=== PATIENT | male | born 1970 | race Hispanic/Latino ===

== ENCOUNTER 2018-01-06 16:50 | Observation (INO) | payer SELFPAY ==
[2018-01-06 17:16] LABS: #Eosinphils 0.1 thou/uL (0.0-0.7); #Monocytes 0.6 thou/uL (0.11-0.59); #Neutrophils 3.8 thou/uL (1.40-6.50); %Basophils 0.3 % (0.0-1.0); %Eosinophils 0.9 % (0.0-10.0); %Lymphocytes 30.7 % (21.0-51.0); %Monocytes 9.1 % (0.0-10.0); Hemoglobin 18.7 g/dL (14.0-18.0); Mean Corpuscular Volume 91.6 fL (78.0-98.0); Platelet Count 153 thou/uL (130-400); RBC Distribution Width 11.2 % (11.5-14.5); Red Blood Cell (RBC) Count 5.84 mill/uL (4.70-6.10); White Blood Cell (WBC) Count 6.4 thou/uL (4.8-10.8)
[2018-01-06 17:41] LABS: ALT (SGPT) 103 U/L (8-55); AST (SGOT) 67 U/L (5-34); Albumin 4.8 g/dL (3.5-5.0); Alkaline Phosphatase 150 U/L (40-150); Anion Gap 20 mmol/L (10-20); BUN (Urea Nitrogen) 19 mg/dL (8.9-20.6); Bilirubin, Total 1.1 mg/dL (0.2-1.2); Calc. Creatinine Clearance 0 mL/min (70-130); Calcium 11.3 mg/dL (7.8-10.44); Carbon Dioxide 20 mmol/L (22-29); Chloride 100 mmol/L (98-107); Estimated GFR-MDRD 26; Globulin 4.5 g/dL (2.4-3.5); Glucose 140 mg/dL (70-105); Potassium 4.3 mmol/L (3.5-5.1); Protein, Total 9.3 g/dL (6.0-8.3); Sodium 136 mmol/L (136-145)
[2018-01-06 17:44] LABS: Bilirubin Small (Negative); Blood, Urine Negative (Negative); Clarity CLOUDY (Clear); Glucose, Urine (Dipstick) Negative (Negative); Leukocyte Small (Negative); Nitrite Negative (Negative); Protein, Urine (Dipstick) 30 mg/dL (Neg-Trace); Specific Gravity, Urine 1.024 (1.002-1.036); pH, Urine 5.5 (5.0-9.0)
[2018-01-06 17:45] LABS: Bacteria/HPF None Seen HPF (None Seen)
[2018-01-06 17:45] LABS: Troponin I Less than 0.010 ng/mL (< 0.028)
[2018-01-06 17:52] LABS: Pathc Cast-AUWi Flag 6.83 (0-2.49)
[2018-01-06 18:04] LABS: RBC/HPF 0-3 HPF (0-3)
[2018-01-06] MEDS ORDERED: HYDROcodone/Acetaminophen 5/325 mg Tablet PO PRN ×2 (21:28)
[2018-01-06] MEDS ORDERED: Acetaminophen 325 MG TAB PO PRN (21:28)
[2018-01-06] MEDS ORDERED: Ondansetron HCl/PF 4 MG/2 ML Vial IVP PRN (21:28)
[2018-01-06] MEDS ORDERED: Ondansetron ODT 4 MG TAB SL PRN (21:28)
[2018-01-06] MEDS ORDERED: Dextrose 5 %-0.45 % NaCl 1,000 ML IV SCH (21:30)
[2018-01-06 22:09] VITALS: BMI 31.8
[2018-01-06] MEDS: Sodium Chloride 0.9% 1,000 ML IV SCH (23:44)
--- NOTE | 2018-01-06 23:54 | PDOC.FPRHP ---
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 Headache was 5/10, occipital and no associated vision changes or speech slurring. Also endorsed nausea, feeling SOB and leg muscle cramping. His nephew drove him home and during the car ride he had 3 episodes were he lost consciousness for less than a minute. Per patient, he said his nephew did not notice any full body shaking or tremors. Patient denied chest pain, palpitations, loss of urine. He endorses dad dying at age of 36 from "heart exploding" and a history of heart problems leading up to . ED Course: He came into ED tachycardic at 102 with BP 129/105 and temp 97.9. He received 2L of NS bolus and was vitally stable upon admission. - Allergies/Adverse Reactions Allergies Allergy/AdvReac Type Severity Reaction Status Date / Time Penicillins Allergy Verified 01/06/18 21:52 - Home Medications Medication Instructions Recorded Confirmed Type No Known [No Known] 01/06/18 01/06/18 History - History PMHx: HIV PSHx: None FHx: Father of "heart exploding" at age 36. DM-mom Social: 14 pack year history, drinks a 6pack daily for past 20 years, denies drug use. - Review of Systems General: denies: fever/chills, weight/appetite/sleep changes, night sweats Eyes: denies: eye pain, vision changes ENT: denies: nasal congestion, rhinorrhea Respiratory: reports: shortness of breath (SOB earlier in the day). denies: cough Cardiovascular: denies: chest pain, palpitation, edema Gastrointestinal: reports: nausea. denies: vomiting, diarrhea Genitourinary: denies: dysuria Skin: denies: rashes, jaundice Musculoskeletal: denies: pain Neurological: reports: syncope. denies: numbness - Vital signs BP: [113/70] HR: [81] RR: [18] Tmax: [98.1] Pox: [98]% on [RA] Wt: [97.6kg] - Physical Exam Constitutional: NAD, awake, alert and oriented HEENT: normocephalic and atraumatic, EOMI, conjunctiva clear, other (oral mucosa dry, non-scrapable white plaque on tongue) Neck: supple, other (left neck skin lesion, closed and healing) Chest: no-tender to palpation Heart: RRR Lungs: CTAB, no respiratory distress, good air movement Abdomen: soft, non-tender Musculoskeletal: normal structure Skin: no rash/lesions, capillary refill <2 seconds Heme/Lymphatic: no unusual bruising or bleeding Psychiatric: normal mood and affect FMR H&P: Results - Labs Result Diagrams: 01/07/18 04:38 01/07/18 04:38 Lab results: WBC 6.4 thou/uL (4.8-10.8) 01/06/18 17:13 Hgb 18.7 g/dL (14.0-18.0) H 01/06/18 17:13 Hct 53.4 % (42.0-52.0) H 01/06/18 17:13 MCV 91.6 fL (78.0-98.0) 01/06/18 17:13 Plt Count 153 thou/uL (130-400) 01/06/18 17:13 Neutrophils % 59.0 % (42.0-75.0) 01/06/18 17:13 Sodium 136 mmol/L (136-145) 01/06/18 17:13 Potassium 4.3 mmol/L (3.5-5.1) 01/06/18 17:13 Chloride 100 mmol/L (98-107) 01/06/18 17:13 Carbon Dioxide 20 mmol/L (22-29) L 01/06/18 17:13 BUN 19 mg/dL (8.9-20.6) 01/06/18 17:13 Creatinine 2.68 mg/dL (0.6-1.3) H 01/06/18 17:13 Glucose 140 mg/dL (70-105) H 01/06/18 17:13 Calcium 11.3 mg/dL (7.8-10.44) H 01/06/18 17:13 Total Bilirubin 1.1 mg/dL (0.2-1.2) 01/06/18 17:13 AST 67 U/L (5-34) H 01/06/18 17:13 ALT 103 U/L (8-55) H 01/06/18 17:13 Alkaline Phosphatase 150 U/L (40-150) 01/06/18 17:13 CK-MB (CK-2) 3.0 ng/mL (0-6.6) 01/06/18 17:13 Serum Total Protein 9.3 g/dL (6.0-8.3) H 01/06/18 17:13 Albumin 4.8 g/dL (3.5-5.0) 01/06/18 17:13 Urine Ketones Trace mg/dL (Negative) H 01/06/18 17:37 Urine Blood Negative (Negative) 01/06/18 17:37 Urine Nitrite Negative (Negative) 01/06/18 17:37 Ur Leukocyte Esterase Small (Negative) H 01/06/18 17:37 Urine RBC 0-3 HPF (0-3) 01/06/18 17:37 Urine WBC 4-6 HPF (0-3) H 01/06/18 17:37 Ur Squamous Epith Cells 4-6 HPF (0-3) H 01/06/18 17:37 Urine Bacteria None Seen HPF (None Seen) 01/06/18 17:37 - EKG Interpretation EKG: RRR, no ST elevations, normal [place] interval FMR H&P: A/P - Problem List (1) Syncope Status: Acute Code(s): R55 - SYNCOPE AND COLLAPSE (2) RYNE (acute kidney injury) Status: Acute Code(s): N17.9 - ACUTE KIDNEY FAILURE, UNSPECIFIED (3) Headache Status: Acute Code(s): R51 - HEADACHE (4) Hypercalcemia Status: Acute Code(s): E83.52 - HYPERCALCEMIA (5) Hyperglycemia Status: Acute Code(s): R73.9 - HYPERGLYCEMIA, UNSPECIFIED (6) Elevated LFTs Status: Acute Code(s): R94.5 - ABNORMAL RESULTS OF LIVER FUNCTION STUDIES (7) HIV (human immunodeficiency virus infection) Status: Chronic - Plan 47 yo HIV+ male with syncope, ryne, headache, hypercalcemia, hyperglycemia, increased LFTs. 1. Syncope likely 2/2 hypovolemia, r/o cardiac source -Fluid resuscitate with NS @125cc/hr -However due to FHx of father's cardiac-related at 36 yo will do cardiac w /u -Will order echo 2. RYNE, unclear etiology -Less likely due to hypovolemia with BUN/Cr of 19/2.8 and gfr of 26 -Could be chronic changes 2/2 HIV or other etiology, but no records of baseline renal function to compare to -Will order urine creatinine, urine Na 3. TABOR likely 2/2 hypovolemia -Acetminophen 650mg, prn 4. Hypercalcemia likely 2/2 hypovolemia -Currently asx -NS @125cc/hr -Will repeat BMP tonight/in the AM to see if resolved. If not, consider other secondary causes of Hypercalcemia 5. Hyperglycemia likely 2/2 hypovolemia -Will repeat BMP tonight/in the AM to see if resolved. If not, consider checking HbA1c 6. Elevated LFTs possibly 2/2 extensive alcohol consumption vs. HIV vs. infectious etiology -Will order Hep C Ab and RPR -Can consider checking CD4 count or consulting Dr. Jackson if LFTs remain elevated 7. HIV+ -Currently not on HAART -Followed by Dr. Jackson; patient is in process of switching over anti-HIV medications, recently underwent HIV testing (possbly EU2puaoc?) FMR H&P: Upper Level - Pertinent history 47 yr old male with PMH of HIV presents for 3 episodes of syncope this afternoon. 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 He doesnt remember when he passed out but his nephew reports that he went out 3 times in the car. He felt little confused after. No shaking or convulsions. He denies palpitations preceding this. No chest pain. He feels that he is very dehydrated. No recent fever or chills. Reports that his HIV is not good currently. Not on meds. The good counts are low and bad are high according to patient. Waiting to get on new med. Reports his father at age 36 and had a heart condition. - Pertinent findings Gen: NAD, pleasant interactive, A & O to person, place, time, and situation Mouth:moist mucous membranes, white plaque on tongue- does not scrape off Cardiac: RRR, no M/R/G Lungs: CTAB no wheeze, rhale, rhonchi Abd: non tender in all quadrants, protuberant, BS present EXT: no edema in BLE, post tibial pulse 2+ EKG: NSR, no st changes - Plan Date/Time: 01/06/18 5926 I, [Dian Vega], have evaluated this patient and agree with findings/plan as outlined by business intern resident. Pertinent changes/additions are listed here. 47 yr old male with PMH of HIV here for episode x 3 of passing out. 1.Syncope likely 2/2 hypovolemia -must rule out cardiac causes with patient history and family history(consider brugada although EKG not indicative) -ECHO -monitor on tele -check mag -s/p 2 liters in ER and cont on NS at 125. 2.HIV -needs to follow up with Dr. Jackson outpatient vs courtesy consult -likely leukoplakia developing 3.RYNE (unknown baseline) -urine studies to determine prerenal vs intrinsic 4.Transaminitis -possibly 2/2 to alcohol abuse -check hep C, RPR -trend CMP 5.Hypercalcemia -likely 2/2 hypovolemia -recheck in AM Attending Addendum - Attending Addendum Date/Time: 01/07/18 2264 I personally evaluated the patient and discussed the management with Dr. Montenegro and Dr. eVga I agree with the History, Examination, Assessment and Plan documented above with any addition or exceptions noted below. 47 yo male with history of HIV presents for evaluation of syncopal episode. Patient without symptoms currently. Denies associated symptoms related to brief syncopal episodes today. Patient reports working outside in the heat today. Feels like he might have gotten over heated. Will admit for syncopal related to heat illness and hypovolemia. Continue IVFs. Rule out rhabdo. Will follow up with Dr. Jackson for HIV. Currently not on HAART due to resistance. However, due to risk rule out CV causes of syncope. ABrayMD
[2018-01-07 00:10] LABS: Amphetamine Not Detected (NotDetected); Barbiturates Screen Not Detected (NotDetected); Benzodiazepine Screen Not Detected (NotDetected); Cocaine Metabolite Screen Not Detected (NotDetected); Medtox Control Line Valid? VALID (VALID); Medtox Reader # READER 1; Methadone Not Detected (NotDetected); Methamphetamine Not Detected (NotDetected); Opiate Screen Not Detected (NotDetected); Oxycodone Screen Not Detected (NotDetected); Phencyclidine (PCP) Not Detected (NotDetected); THC/Cannabinoid Screen Not Detected (NotDetected); Tricyclic Screen Not Detected (NotDetected)
[2018-01-07 00:11] LABS: Creatinine, Urine 343.08 mg/dL (63-166)
[2018-01-07 00:32] LABS: Hep C IgG Ab Non-Reactive (NonReactive); Hep C Index 0.08 S/CO (0-0.79)
[2018-01-07 00:50] LABS: Syphilis Antibody Index 13.89 S/CO (<1.00 Non-Reactive)
[2018-01-07 01:09] LABS: Anion Gap 14 mmol/L (10-20); BUN (Urea Nitrogen) 19 mg/dL (8.9-20.6); Calc. Creatinine Clearance 78 mL/min (70-130); Calcium 9.1 mg/dL (7.8-10.44); Carbon Dioxide 25 mmol/L (22-29); Chloride 105 mmol/L (98-107); Estimated GFR-MDRD 46; Glucose 129 mg/dL (70-105); Magnesium 2.1 mg/dL (1.6-2.6); Potassium 3.8 mmol/L (3.5-5.1); Sodium 140 mmol/L (136-145)
[2018-01-07 01:15] LABS: Syphilis Antibody REACTIVE (Nonreactive)
[2018-01-07 05:19] LABS: ALT (SGPT) 71 U/L (8-55); AST (SGOT) 44 U/L (5-34); Albumin 3.5 g/dL (3.5-5.0); Alkaline Phosphatase 112 U/L (40-150); Anion Gap 10 mmol/L (10-20); BUN (Urea Nitrogen) 18 mg/dL (8.9-20.6); Bilirubin, Total 0.6 mg/dL (0.2-1.2); Calc. Creatinine Clearance 104 mL/min (70-130); Calcium 8.7 mg/dL (7.8-10.44); Carbon Dioxide 28 mmol/L (22-29); Chloride 105 mmol/L (98-107); Estimated GFR-MDRD 65; Globulin 3.2 g/dL (2.4-3.5); Glucose 107 mg/dL (70-105); Potassium 3.8 mmol/L (3.5-5.1); Protein, Total 6.7 g/dL (6.0-8.3); Sodium 139 mmol/L (136-145)
--- NOTE | 2018-01-07 05:44 | PDOC.FM ---
- Subjective Subjective: Mr. Echols feels great this morning with no complaints. Says lightheadedness, cramps, nausea have all resolved. He is eating, drinking, and urinating well. - Objective MAR Reviewed: Yes Vital Signs & Weight: Vital Signs (12 hours) Temp Pulse Resp BP BP Pulse Ox 01/07/18 04:40 98.1 F 84 18 106/77 97 01/06/18 23:54 98.1 F 74 18 118/67 97 01/06/18 21:17 98.1 F 81 18 113/70 98 Weight Admit Weight 97.658 kg Weight 97.658 kg I&O: 01/05/18 01/06/18 01/07/18 06:59 06:59 06:59 Intake Total 840 Balance 840 Result Diagrams: 01/07/18 04:38 01/07/18 04:38 <Nanda Ng - Last Filed: 01/07/18 09:05> - Objective Vital Signs & Weight: Vital Signs (12 hours) Temp Pulse Resp BP BP Pulse Ox 01/07/18 08:15 97.5 F L 69 16 01/07/18 07:48 97.5 F L 69 16 115/66 98 01/07/18 04:40 98.1 F 84 18 106/77 97 Weight Admit Weight 97.658 kg Weight 97.658 kg I&O: 01/06/18 01/07/18 01/08/18 06:59 06:59 06:59 Intake Total 840 1761 Balance 840 1761 Result Diagrams: 01/07/18 04:38 01/07/18 04:38 <Janusz Reaves - Last Filed: 01/07/18 14:10> Phys Exam - Physical Examination Constitutional: NAD HEENT: moist MMs leukoplakia Respiratory: clear to auscultation bilateral Cardiovascular: RRR, no significant murmur Gastrointestinal: soft, non-tender, positive bowel sounds Musculoskeletal: no edema Neurological: non-focal Psychiatric: normal affect Skin: normal turgor, cap refill <2 seconds <Nanda Ng - Last Filed: 01/07/18 09:05> Dx/Plan (1) Syncope Code(s): R55 - SYNCOPE AND COLLAPSE Status: Acute (2) RYNE (acute kidney injury) Code(s): N17.9 - ACUTE KIDNEY FAILURE, UNSPECIFIED Status: Acute (3) Elevated LFTs Code(s): R94.5 - ABNORMAL RESULTS OF LIVER FUNCTION STUDIES Status: Acute (4) Hypercalcemia Code(s): E83.52 - HYPERCALCEMIA Status: Acute (5) HIV (human immunodeficiency virus infection) Status: Chronic (6) Syphilis contact, treated Code(s): Z20.2 - CONTACT W AND EXPOSURE TO INFECT W A SEXL MODE OF TRANSMISS Status: Chronic - Plan Plan: 47 yo HIV+ male with 3 episodes of passing out and dehydration. Syncope likely 2/2 hypovolemia, r/o cardiac source -considering patient and family history of father's cardiac at 36yo, rule out cardiac causes -NS @125cc/hr -echo pending -monitor tele -mag normal RYNE, resolved -unknown baseline -Cr 2.8 on admission->1.2 -FENa 0.3%, suggests prerenal cause which is consistent with other symptoms and patient's response to IV fluids Hyperglycemia likely 2/2 hypovolemia -will consider checking A1c Elevated LFTs -Hep C negative -patient denies any history of liver disease. LFTs trending down with fluids, possible hypovolemic cause HIV+ -Currently not treated -Followed by Dr. Jackson; patient is in process of switching over anti-HIV medications, recently underwent HIV testing -pt reports CD4 1 mo ago was <100 Syphilis -RPR titer and IgG/IgM ab reactive. -patient confirms history of syphilis and says he was treated [address] Jackson. Hypercalcemia likely 2/2 hypovolemia, resolved <Nanda Ng - Last Filed: 01/07/18 09:05> Attending Addendum - Attending Addendum Date/Time: 01/07/18 1515 I personally evaluated the patient and discussed the management with Dr. Ng. I agree with the History, Examination, Assessment and Plan documented above with any addition or exceptions noted below. Patient with weakness and feelings of dehydration admitted for hypovolemia and pre-renal RYNE. These have resolved and patient is feeling well. Due to his symptoms and family history, echo obtained. He feels well and is stable for discharge with advice to push fluids over the next few days. Hypercalcemia has significantly improved, likely was due to hemoconcentration. <Janusz Reaves - Last Filed: 01/07/18 14:10>
[2018-01-07 05:45] LABS: Band 4 % (5-11); Hemoglobin 15.4 g/dL (14.0-18.0); Lymphocytes 30 % (21-51); MDiff Complete? YES; Mean Corpuscular HGB CONC 34.7 g/dL (32.0-36.0); Mean Corpuscular Hemoglobin 32.5 pg (27.0-31.0); Mean Corpuscular Volume 93.6 fL (78.0-98.0); Mean Platelet Volume 9.3 fL (7.4-10.4); Metamyelocyte 4 % (0-0); Monocytes 16 % (0-10); Neutrophil 42 % (42-75); PLT Morphology Comment Appears Decreased; Platelet Count 109 thou/uL (130-400); RBC Distribution Width 11.2 % (11.5-14.5); Reactive Lymphocytes 4 % (0-10); Red Blood Cell (RBC) Count 4.76 mill/uL (4.70-6.10); White Blood Cell (WBC) Count 3.9 thou/uL (4.8-10.8)
[2018-01-07] MEDS: Sodium Chloride 0.9% 1,000 ML IV SCH (08:07)
[2018-01-07 08:33] VITALS: BP 115/66; TEMP 97.5
[2018-01-07] MEDS ORDERED: Enoxaparin Sodium 30 MG/0.3 ML SYRINGE SC SCH (09:00)
--- NOTE | 2018-01-07 22:43 | CON ---
DATE OF CONSULTATION: 01/07/2018 REASON FOR CONSULTATION: Heat stroke. 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 Patient has not been able to take his antiretroviral medic ine due to issues with his insurance. Also, he previously has displayed poor adherence to antiretrov iral therapy due to various personal reasons. He is feeling better after volume repletion. He denie s headaches any longer. No visual symptoms, sore throat, odynophagia, dysphagia. No dyspnea or abdo olivia pain, no diarrhea or genitourinary symptoms. PAST MEDICAL HISTORY: Longstanding HIV infection with erratic adherence to antiretroviral therapy, briana phillip as well. FAMILY HISTORY: Noncontributory except for diabetes. SOCIAL HISTORY: He is a former smoker and drinks heavily about 6 packs a day. He works in the [employer] with family members. PHYSICAL EXAMINATION: VITAL SIGNS: Blood pressure 115/66, pulse 69, temperature has been normal since admission, O2 sats a re 98% on room air. SKIN: Normal. There is no lymphadenopathy. HEENT: Ocular movements conjugate. Oral cavity with evidence of oral candidiasis. NECK: Supple. LUNGS: Symmetric clear breath sounds. HEART: S1, S2, regular rate. No S3 or S4. ABDOMEN: Soft, not distended, nontender. No ascites. EXTREMITIES: No joint inflammatory activity. Moves extremities equally. LABORATORY DATA: White cell count 3.9, hemoglobin 15.4, platelets 109 with 42% neutrophils, 4% bands , 16% monocytes. Sodium 139, creatinine is down to 1.2 from admission when it was 2.68, AST 44, ALT 71, alkaline phosphatase 112 and albumin 3.5. Urinalysis with 4-6 wbc's and a protein of 30. Toxico logy was negative and serology with a RPR titer 1-4. His last CD4 cell count was 63, viral load I th ink was 40,000. The PhenoSense GT showed spears susceptibility to all antiretroviral medicines. ASSESSMENT: Longstanding human immunodeficiency virus infection with erratic adherence to antiretrov iral therapy and now heat exposure with volume depletion and Mela stomatitis. DISCUSSION: I have submitted prescription for the new antiretroviral therapy Biktarvy for him to sta rt as soon as he gets approved for the state program. In addition to that, he is going to need Diflu can for management of oral candidiasis. It looks like he has improved and his discharge planning has been considered. I am not going to submit any opportunistic workup at this point in time. He seems to be on adequate pneumocystis prophylaxis and the other OI's are less likely in this circumstance.
--- NOTE | 2018-01-08 16:11 | DIS-2 ---
DATE OF ADMISSION: 01/06/2018 DATE OF DISCHARGE: 01/07/2018 RESIDENT: Nanda Ng DO ADMITTING ATTENDING: Richelle Belcher M.D. DISCHARGE ATTENDING: Janusz Reaves MD CONSULTATIONS: None. PROCEDURE: Echo. PRIMARY DIAGNOSES: 1. Syncope. 2. Acute kidney injury. 3. Elevated liver function tests. 4. Hypercalcemia. SECONDARY DIAGNOSES: 1. Human immunodeficiency virus. 2. Syphilis contact, treated. DISCHARGE MEDICATIONS: None. DISCONTINUED MEDICATIONS: None. HISTORY OF PRESENT ILLNESS AND HOSPITAL COURSE: This is a 47-year-old HIV positive male, who present s to the ER for dizziness, headache, lightheadedness after working outdoors all day. Family noticed him nearly passing out, though he never fully lost consciousness. He arrived into the ER tachycardic and was given fluid bolus for possible dehydration. Vital signs improved quickly after that. The p atient was afebrile. With fluid resuscitation, his lab abnormalities including an RYNE and hypercalce john quickly resolved. He was monitored on telemetry. Considering his family history of early cardia c in his father, cardiac causes were also considered. The patient had an echo on 01/07/2018. Results still pending. Patient was stable and asymptomatic upon discharge with an uncomplicated hosp ital course. DISPOSITION: Stable. DISCHARGE INSTRUCTIONS: 1. Location: Home. 2. Diet: Regular. 3. Activity: As tolerated. 4. Followup: With PCP.
== END 2018-01-07 14:36 | disposition home or self-care (01) ==
LOC: ERS 16:50 → 2SW 21:07
PROVIDERS: ADMIT Student in an Organized Health Care Education/Training Program; ATTEND Student in an Organized Health Care Education/Training Program
DX: R55 Syncope and collapse (principal); N17.9 Acute kidney failure, unspecified; B20 Human immunodeficiency virus [HIV] disease; R73.9 Hyperglycemia, unspecified; R79.89 Other specified abnormal findings of blood chemistry; Z88.0 Allergy status to penicillin; Z20.2 Contact with and (suspected) exposure to infections with a predominantly sexual mode of transmission; Z87.891 Personal history of nicotine dependence
CPT/HCPCS: 36415; 80053; 80306; 81003; 81015; 82553; 82570; 83735; 84156; 84300; 84484; 85025; 86593; 86780; 86803; 93005; 93306; 96360; 96361; G0378; J1650

== ENCOUNTER 2018-06-08 14:25 | Emergency (ER) | payer SELFPAY ==
[2018-06-08] MEDS ORDERED: Bacitracin Zinc 1 Packet ONE (15:18)
== END 2018-06-08 15:47 | disposition home or self-care (01) ==
LOC: ERS 14:25
DX: L02.01 Cutaneous abscess of face (principal); L03.811 Cellulitis of head [any part, except face]; F17.210 Nicotine dependence, cigarettes, uncomplicated; B20 Human immunodeficiency virus [HIV] disease; Z79.899 Other long term (current) drug therapy
CPT/HCPCS: 10061